=== PATIENT | female | born 2000 | race Two or more races ===

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

== ENCOUNTER 2018-07-24 14:13 | Emergency (ER) | payer MEDICAID, OTHER ==
[~2018-07-24] VITALS: Ht 157.5 cm; Wt 53.1 kg
--- NOTE | 2018-07-24 15:00 | NUR ---
patient presented to the ER c/o cough. on room air, breathing evenly and unlabored. kept comfortable. will continue to monitor accordingly.
[2018-07-24] MEDS ORDERED: ACETAMINOPHEN ES 500 MG TABLET PO ONE (15:30)
[2018-07-24] MEDS ORDERED: IBUPROFEN 600 MG TABLET PO ONE ×2 (15:30→15:34)
[2018-07-24] MEDS ORDERED: ACETAMINOPHEN ES 500 MG TABLET ONE (15:34)
[2018-07-24 15:43] VITALS: BP 115/61
--- NOTE | 2018-07-24 15:44 | NUR ---
Patient discharged to home in stable condition. Written and verbal after care instructions given. Patient verbalizes understanding of instruction.
== END 2018-07-24 15:44 | disposition home or self-care (01) ==
LOC: ER 14:22
DX: J11.1 Influenza due to unidentified influenza virus with other respiratory manifestations (principal); R01.1 Cardiac murmur, unspecified
CPT/HCPCS: 99283; A4606

== ENCOUNTER 2018-10-27 18:10 | Emergency (ER) | payer MEDICAID, OTHER ==
[~2018-10-27] VITALS: Ht 157.5 cm; Wt 53.1 kg
[2018-10-27 18:19] VITALS: BP 116/79
== END 2018-10-27 18:42 | disposition home or self-care (01) ==
LOC: ER 18:12
DX: H10.11 Acute atopic conjunctivitis, right eye (principal)